=== PATIENT | male | born 1960 | race Caucasian/White ===

== ENCOUNTER 2021-02-09 20:33 | Emergency (ER) | payer BC ==
[~2021-02-09] VITALS: Ht 165.1 cm; Wt 83.9 kg
[2021-02-09 20:35] VITALS: BP_SYST 151
--- NOTE | 2021-02-09 20:35 | NUR ---
Patient triaged and placed in waiting room. VSS and patient appears in no acute distress at this time. Accompanied by self , awaiting available bed, and MD notified of need for MSE.
--- NOTE | 2021-02-09 20:37 | NUR ---
Pt brought by self, A&Ox4, pt presents to ER with chest pain 5/10 since last night, non-radiating, skin pink and warm, cap refill <3, VSS, respirations even and unlabored, will cont to monitor.
[2021-02-09 21:12] LABS: BASOPHILS % (AUTO) 0.7 % (0.0-2.0); EOSINOPHILS # (AUTO) 0.3 K/uL (0.0-0.4); HEMATOCRIT 40.2 % (36-54); HEMOGLOBIN 14.6 g/dL (14.0-18.0); LYMPHOCYTES # (AUTO) 2.1 K/uL (1.0-5.5); LYMPHOCYTES % (AUTO) 30.4 % (20.5-51.5); MEAN CORPUSCULAR HEMOGLOBIN 33 pg (27-31); MEAN CORPUSCULAR HGB CONC 36 % (32-36); MEAN CORPUSCULAR VOLUME 92 fL (79.0-98.0); MONOCYTES # (AUTO) 0.4 K/uL (0.0-1.0); MONOCYTES % (AUTO) 5.5 % (1.7-9.3); NEUTROPHILS # (AUTO) 3.9 K/uL (1.8-7.7); NEUTROPHILS % (AUTO) 58.4 % (40.0-70.0); PLATELET COUNT (AUTO) 353 K/uL (130-430); RED BLOOD CELL COUNT(AUTO) 4.39 MIL/uL (4.2-6.2); RED CELL DISTRIBUTION WIDTH 13.1 % (9.0-15.0); WHITE BLOOD COUNT (AUTO) 6.8 K/uL (4.8-10.8)
[2021-02-09 21:27] LABS: ANION GAP 7 (5-15); CALCIUM 8.8 mg/dL (8.4-11.0); CHLORIDE 104 mmol/L (98-107); CREATININE 1.51 mg/dL (0.55-1.30); GLUCOSE 127 mg/dL (70-99); POTASSIUM 3.7 mmol/L (3.5-5.1); SODIUM SERUM 138 mmol/L (136-145); UREA NITROGEN, BLOOD 27 mg/dL (8-21)
[2021-02-09 21:30] LABS: INR 0.9 (0.80-1.20); PROTHROMBIN TIME 9.7 SECS (9.5-12.5)
[2021-02-09 21:36] LABS: ALBUMIN 3.9 g/dL (3.4-4.8); TOTAL BILIRUBIN 0.5 mg/dL (0.0-1.0)
[2021-02-09 21:59] LABS: GFR AFRICAN AMERICAN 61 mL/min (>90)
--- NOTE | 2021-02-09 22:57 | NUR ---
Pt A&Ox4, VSS, respirations even and unlabored
[2021-02-09 23:16] LABS: ALANINE AMINOTRANSFERASE 27 U/L (12-78); ASPARTATE AMINOTRANSFERASE 27 U/L (10-37)
--- NOTE | 2021-02-10 00:57 | NUR ---
patient called to bed. patient not in waiting room.
== END 2021-02-10 00:57 | disposition left against medical advice (07) ==
LOC: SED 20:33
DX: R07.9 Chest pain, unspecified (principal)
CPT/HCPCS: 36415; 71046-TC; 80053; 83690; 84484; 85025; 85610-TC; 93005; 99285